=== PATIENT | male | born 1985 | race Two or more races ===

== ENCOUNTER 2023-03-13 17:56 | Emergency (ER) | payer OTHER ==
[~2023-03-13] VITALS: Ht 177.8 cm; Wt 94.5 kg
[2023-03-13 18:13] VITALS: TEMP 98.3
[2023-03-13] MEDS ORDERED: KETOROLAC TROMETHAMINE 60 MG/2 ML VIAL IM ONE (19:15)
[2023-03-13] MEDS ORDERED: HYDROCODONE/ACETAMINOPHEN 5-325 MG TABLET PO ONE (19:15)
[2023-03-13 20:30] VITALS: BP 124/99; PULSE 79; RESP 17
[2023-03-13] MEDS ORDERED: IBUP-1554 PO (22:05)
[2023-03-13] MEDS ORDERED: HYDR-4072 PO (22:05)
[2023-03-13] MEDS ORDERED: BACL10TA PO (22:05)
== END 2023-03-13 23:10 | disposition home or self-care (01) ==
LOC: EMS 17:59
DX: S39.012A Strain of muscle, fascia and tendon of lower back, initial encounter (principal); S13.4XXA Sprain of ligaments of cervical spine, initial encounter; V69.88XA Occupant (driver) (passenger) of heavy transport vehicle injured in other specified transport accidents, initial encounter; Y93.89 Activity, other specified; Y92.89 Other specified places as the place of occurrence of the external cause; Y99.8 Other external cause status
CPT/HCPCS: 99284; 72040; 72070; 72100; 96372; J1885